=== PATIENT | male | born 1975 | race Hispanic/Latino ===

== ENCOUNTER 2019-10-25 16:06 | Emergency (ER) | payer OTHER ==
--- NOTE | 2019-10-25 17:25 | Event Note ---
ED Screening Note Date of service: 10/25/19 Time: 17:23 ED Screening Note: Pt complains of sudden onset of dizziness and racing heart today Hx of HTN denies headache This initial assessment/diagnostic orders/clinical plan/treatment(s) is/are subject to change based on patients health status, clinical progression and re- assessment by fellow clinical providers in the ED. Further treatment and workup at subsequent clinical providers discretion. Patient/guardian urged not to elope from the ED as their condition may be serious if not clinically assessed and managed. Initial orders include: labs EKG
[2019-10-25 18:43] LABS: Basophils # (Auto) 0.1 K/mm3 (0.0-0.1); Basophils % (Auto) 1.2 % (0.0-1.8); Eosinophils # (Auto) 0.1 K/mm3 (0.0-0.4); Eosinophils % (Auto) 1.6 % (0.0-4.3); Hematocrit 45.2 % (35.5-45.6); Hemoglobin 15.3 gm/dl (11.8-15.2); Lymphocytes % (Auto) 22.1 % (13.4-35.0); Mean Corpuscular HGB Conc 34 % (32-34); Mean Corpuscular Volume 90 fl (84-94); Monocytes # (Auto) 0.9 K/mm3 (0.0-0.8); Monocytes % (Auto) 9.9 % (0.0-7.3); Platelet Count 295 K/mm3 (140-440); Red Blood Count 5.05 M/mm3 (3.65-5.03); Red Cell Distribution Width 12.5 % (13.2-15.2)
[2019-10-25 19:08] LABS: Alanine Aminotransferase 33 units/L (7-56); Albumin 4.7 g/dL (3.9-5); BUN/Creatinine Ratio 15; Blood Urea Nitrogen 12 mg/dL (9-20); Calcium 9.5 mg/dL (8.4-10.2); Hemolysis Index 9
[2019-10-26] MEDS ORDERED: KETOROLAC 60 MG/2 ML INJ ONE (00:31)
[2019-10-26] MEDS ORDERED: MECLIZINE 25 MG TAB PO ONE (00:45)
[2019-10-26] MEDS ORDERED: POTASSIUM CHLORIDE ER 20 MEQ TAB PO ONE (00:45)
[2019-10-26] MEDS ORDERED: SODIUM CHLORIDE 0.9% 1000 ML 1,000 ML IV ONE (00:45)
[2019-10-26] MEDS ORDERED: ASPIRIN 325 MG TAB PO ONE (00:54)
--- NOTE | 2019-10-26 01:37 | Emergency Department Report ---
ED General Adult HPI - General Chief complaint: Dizziness Stated complaint: LIGHT HEADED/DIZZINESS Time Seen by Provider: 10/25/19 17:22 Source: patient, EMS Mode of arrival: Wheelchair Limitations: No Limitations - History of Present Illness Initial comments: Patient is a 44-year-old white male with a history of hypertension and obesity who presents to the ED with complaint of acute onset persistent lightheadedness and dizziness with generalized weakness and generalized fatigue for the last 8 hours. Patient states that he has been working in a hot environment and that he also forgot to take his blood pressure medications early in the day before he left the house to go to work. Patient states that the symptoms have been worsening and at one point he felt as if he was going to have a syncopal episode. Patient denies chest pain, headache, syncope, palpitations, nausea, vomiting, shortness of breath, abdominal pain, neck pain, change in vision, fever, chills, cough, diarrhea or sore throat and headache. MD Complaint: Lightheadedness; dizziness; generalized weakness -: Sudden, hour(s) (8) Location: head, chest Radiation: non-radiation Severity scale (0 -10): 7 Quality: aching, sharp Consistency: constant Improves with: none Worsens with: movement Associated Symptoms: denies other symptoms, loss of appetite, malaise, weakness, other (dizziness and lightheadedness). denies: confusion, chest pain, cough, diaphoresis, fever/chills, headaches, nausea/vomiting, rash, seizure, shortness of breath, syncope Treatments Prior to Arrival: none - Related Data Previous Rx's Medication Instructions Recorded Last Taken Type Amoxicillin/Potassium Clav 1 each PO Q12H #20 tablet 10/26/19 Unknown Rx [Augmentin 875-125 Tablet] Meclizine HCl 25 mg PO Q8H PRN #30 tablet 10/26/19 Unknown Rx Allergies Allergy/AdvReac Type Severity Reaction Status Date / Time No Known Allergies Allergy Unverified 10/25/19 16:19 ED Review of Systems ROS: Stated complaint: LIGHT HEADED/DIZZINESS Other details as noted in HPI Constitutional: denies: chills, fever Eyes: denies: eye pain, eye discharge, vision change ENT: denies: ear pain, throat pain Respiratory: denies: cough, shortness of breath, wheezing Cardiovascular: denies: chest pain, palpitations, edema, syncope, paroxysmal nocturnal dyspnea Endocrine: no symptoms reported Gastrointestinal: denies: abdominal pain, nausea, vomiting, diarrhea Genitourinary: denies: urgency, dysuria Musculoskeletal: arthralgia, myalgia. denies: back pain, joint swelling Skin: denies: rash, lesions Neurological: weakness, other (lightheadedness, dizziness). denies: headache, paresthesias Psychiatric: anxiety. denies: depression Hematological/Lymphatic: denies: easy bleeding, easy bruising ED Past Medical Hx - Past Medical History Hx Hypertension: Yes - Social History Smoking Status: Never Smoker Substance Use Type: Alcohol - Medications Home Medications: Home Medications Medication Instructions Recorded Confirmed Last Taken Type Amoxicillin/Potassium Clav 1 each PO Q12H #20 tablet 10/26/19 Unknown Rx [Augmentin 875-125 Tablet] Meclizine HCl 25 mg PO Q8H PRN #30 tablet 10/26/19 Unknown Rx ED Physical Exam - General Limitations: No Limitations General appearance: alert, in no apparent distress - Head Head exam: Present: atraumatic, normocephalic, normal inspection - Eye Eye exam: Present: normal appearance, PERRL, EOMI Pupils: Present: normal accommodation - ENT ENT exam: Present: normal exam, normal orophraynx, mucous membranes moist, TM's normal bilaterally, normal external ear exam - Neck Neck exam: Present: normal inspection, full ROM. Absent: tenderness - Respiratory Respiratory exam: Present: normal lung sounds bilaterally. Absent: respiratory distress, wheezes, rales, stridor, chest wall tenderness, accessory muscle use, decreased breath sounds, prolonged expiratory - Cardiovascular Cardiovascular Exam: Present: normal rhythm, tachycardia, normal heart sounds. Absent: systolic murmur, diastolic murmur, rubs, gallop - GI/Abdominal GI/Abdominal exam: Present: soft, normal bowel sounds. Absent: tenderness, guarding, rebound, hyperactive bowel sounds, hypoactive bowel sounds, organomegaly - Extremities Exam Extremities exam: Present: normal inspection, full ROM, normal capillary refill - Back Exam Back exam: Present: normal inspection, full ROM. Absent: tenderness, CVA tender ness (R), CVA tenderness (L), muscle spasm, paraspinal tenderness, vertebral tenderness - Neurological Exam Neurological exam: Present: alert, oriented X3, CN II-XII intact, normal gait, reflexes normal - Psychiatric Psychiatric exam: Present: normal affect, normal mood, anxious - Skin Skin exam: Present: warm, dry, intact, normal color. Absent: rash ED Course Vital Signs 10/25/19 10/26/19 16:23 01:10 Temperature 98.1 F Pulse Rate 100 H 81 Respiratory 20 16 Rate Blood Pressure 153/91 146/91 O2 Sat by Pulse 97 97 Oximetry ED Medical Decision Making - Lab Data Result diagrams: 10/25/19 17:42 10/25/19 17:42 - EKG Data EKG shows normal: sinus rhythm Rate: normal - EKG Data Interpretation: normal EKG 10/26/19 03:58 The EKG shows normal sinus rhythm with a ventricular rate of [address] or T wave abnormalities. - Radiology Data Radiology results: report reviewed, image reviewed Findings [facility] [address] [place] [address] XRay Report Signed Patient: NNEKA IBARRA MR#: [id number] : 1975 Acct:[id number] Age/Sex: 44 / M ADM Date: 10/25/19 Loc: ED Attending Dr: Ordering Physician: COLEEN MARCOS Date of Service: 10/26/19 Procedure(s): XR chest 1V ap Accession Number(s): [id number] cc: COLEEN MARCOS Fluoro Time In Minutes: CHEST 1 VIEW 0118 INDICATION / CLINICAL INFORMATION: dizziness, weakness COMPARISON: None available. FINDINGS: SUPPORT DEVICES: None HEART / MEDIASTINUM: No significant abnormality. LUNGS / PLEURA: A mildly congested appearance is noted. Mild increased interstitial markings are seen which most suggests mild pulmonary edema. Acute interstitial pneumonitis is not entirely excluded though is not tapered with this pattern. No pneumothorax. ADDITIONAL FINDINGS: No significant additional findings. IMPRESSION: Mild congestion and mild increase in interstitial markings as above Signer Name: Jung Garner MD Signed: 10/26/2019 1:48 AM Workstation Name: [id number] Transcribed By: MÓNICA Dictated By: Jung Garner MD Electronically Authenticated By: Jung Garner MD Signed Date/Time: 10/26/19147 DD/ 4 TD/TT: Findings [facility] [address] [place] [address] Cat Scan Report Signed Patient: NNEKA IBARRA MR#: [id number] : 1975 Acct:[id number] Age/Sex: 44 / M ADM Date: 10/25/19 Loc: ED Attending Dr: Ordering Physician: COLEEN MARCOS Date of Service: 10/26/19 Procedure(s): CT head/brain wo con Accession Number(s): [id number] cc: COLEEN MARCOS CT HEAD WITHOUT CONTRAST INDICATION: Dizziness, weakness TECHNIQUE: All CT scans at this location are performed using CT dose reduction for ALARA by means of automated exposure control. COMPARISON: None available. FINDINGS: BRAIN: No hemorrhage or mass effect are seen. No evidence of acute infarction is noted. ORBITS: Normal as visualized. SOFT TISSUES OF HEAD: Normal. CALVARIUM: Normal. VISUALIZED PARANASAL SINUSES AND MASTOID AIR CELLS: Moderate mucosal thickening is seen in the ethmoid sinuses bilaterally, particularly in the posterior cells, with minimal mucosal thickening and the sphenoid sinuses. No air-fluid levels are seen. ADDITIONAL FINDINGS: None. IMPRESSION: No acute intracranial abnormality. Signer Name: Jung Garner MD Signed: 10/26/2019 3:39 AM Workstation Name: [id number] Transcribed By: GJ Dictated By: Jung Garner MD Electronically Authenticated By: Jung Garner MD Signed Date/Time: 10/26/19338 DD/ 5 - Medical Decision Making This is a 44-year-old white male with a history of hypertension and obesity who presents to the ED with complaint of acute onset persistent lightheadedness and dizziness with generalized weakness and generalized fatigue for the last 8 hours. Patient states that he has been working in a hot environment and that he also forgot to take his blood pressure medications early in the day before he left the house to go to work. Patient states that the symptoms have been worsening and at one point he felt as if he was going to have a syncopal episod e. In the ED, patient is alert and oriented x3 and is not in distress. EKG shows normal sinus rhythm with a ventricular rate of [address] or T wave abnormalities. Lab test results were reviewed and are all nonactionable except for mild hypokalemia of 3.1 mmol/L and slightly elevated CK level of 217. Rest of the lab test results are nonactionable. Chest x-ray showed a mildly congested appearance is noted. Mild increased interstitial markings are seen which most suggests mild pulmonary edema. Acute interstitial pneumonitis is not entirely excluded though is not tapered with this pattern. No pneumothorax. Head CT scan without contrast showed no acute intracranial abnormalities or h emorrhage but moderate mucosal thickening is seen in the ethmoid sinuses bilaterally, particularly in the posterior cells, with minimal mucosal thickening and the sphenoid sinuses. No air-fluid levels are seen. Patient was treated in the ED with normal saline 1 L IV bolus x1, meclizine, aspirin, and potassium chloride 40 mEq p.o. x1. On reevaluation, patient's dizziness resolved, patient is felt better and was discharged home on medications. Patient was advised to follow-up with his primary care physician in 5 to 7 days for reevaluation. Patient was also advised to return to the ED immediately if symptoms get worse. - Differential Diagnosis dizziness; vertigo; sinusitis; CAD; Pneumonia; dehydration Critical care attestation.: If time is entered above; I have spent that time in minutes in the direct care of this critically ill patient, excluding procedure time. ED Disposition Clinical Impression: Dizziness, nonspecific, Acute hypokalemia, Chronic pansinusitis Disposition: DC-01 TO HOME OR SELFCARE Is pt being admited?: No Does the pt Need Aspirin: No Condition: Stable Instructions: Hypokalemia (ED), Lightheadedness (ED), Dizziness (ED), Acute Bacterial Rhinosinusitis (ED) Additional Instructions: All lab test results were reviewed and are all nonactionable. The imaging reports showed no acute abnormalities except chronic sinusitis. Therefore take medications with food, drink plenty of fluids and follow-up with your primary care physician in 5 to 7 days for reevaluation. Return to the ED immediately if symptoms get worse. Prescriptions: Amoxicillin/Potassium Clav [Augmentin 875-125 Tablet] 1 each PO Q12H #20 tablet Meclizine HCl 25 mg PO Q8H PRN #30 tablet PRN Reason: dizziness Referrals: [facility] [Provider Group] - 3-5 Days [facility] [Outside] - 3-5 Days Forms: Work/School Release Form(ED) Time of Disposition: 04:05 Print Language: INDONESIAN
--- NOTE | 2019-10-26 01:52 | XRay Report ---
CHEST 1 VIEW 0118 INDICATION / CLINICAL INFORMATION: dizziness, weakness COMPARISON: None available. FINDINGS: SUPPORT DEVICES: None HEART / MEDIASTINUM: No significant abnormality. LUNGS / PLEURA: A mildly congested appearance is noted. Mild increased interstitial markings are seen which most suggests mild pulmonary edema. Acute interstitial pneumonitis is not entirely excluded th ough is not tapered with this pattern. No pneumothorax. ADDITIONAL FINDINGS: No significant additional findings. IMPRESSION: Mild congestion and mild increase in interstitial markings as above Signer Name: Jung Garner MD Signed: 10/26/2019 1:48 AM Workstation Name: [id number]
--- NOTE | 2019-10-26 03:44 | Cat Scan Report ---
CT HEAD WITHOUT CONTRAST INDICATION: Dizziness, weakness TECHNIQUE: All CT scans at this location are performed using CT dose reduction for ALARA by means of automated exposure control. COMPARISON: None available. FINDINGS: BRAIN: No hemorrhage or mass effect are seen. No evidence of acute infarction is noted. ORBITS: Normal as visualized. SOFT TISSUES OF HEAD: Normal. CALVARIUM: Normal. VISUALIZED PARANASAL SINUSES AND MASTOID AIR CELLS: Moderate mucosal thickening is seen in the ethmoi d sinuses bilaterally, particularly in the posterior cells, with minimal mucosal thickening and the s phenoid sinuses. No air-fluid levels are seen. ADDITIONAL FINDINGS: None. IMPRESSION: No acute intracranial abnormality. Signer Name: Jung Garner MD Signed: 10/26/2019 3:39 AM Workstation Name: [id number]
[2019-10-26 04:38] VITALS: BP 133/86
== END 2019-10-26 04:38 | disposition home or self-care (01) ==
LOC: ED 16:06
DX: E87.6 Hypokalemia (principal); R42 Dizziness and giddiness; J32.8 Other chronic sinusitis; Z79.899 Other long term (current) drug therapy
CPT/HCPCS: 36415; 70450; 71045; 80053; 82550; 83880; 84484; 85025; 93005; 96360; 99285; J7030; J1885